=== PATIENT | male | born 1950 | race Caucasian/White ===

== ENCOUNTER → 2020-05-02 10:27 | Outpatient (BNVA) | payer OTHER, SELFPAY | PROVIDERS: Family Provider Family Medicine; Visit Provider Family Medicine | DX: Z20.828 Contact with and (suspected) exposure to other viral communicable diseases (principal) | CPT/HCPCS: 87635 ==

== ENCOUNTER 2020-08-02 07:54 | Outpatient (CLI) | payer OTHER, SELFPAY ==
--- NOTE | 2020-08-02 08:24 | FL_ITS ---
WS: [id number] Barium swallow and esophagram, upper GI series, 08/02/2020 Clinical Data: Z98.84 - Bariatric surgery status Comparison: None. Fluoroscopy time: 1.3 minutes. Findings: The patient swallowed the barium, and it flowed through the hypopharynx without hesitation. No strict ure, mass, polyp or erosion was seen. The barium passed into the esophagus and there was poor motility throughout. There was no erosion, po lyp, mass, stricture or esophagitis. However there was massive gastroesophageal reflux to the level o f the thoracic inlet when the patient was in the prone position. The barium passed into the fundus of the stomach which was well distended. The apparatus to narrow the stomach was at the level of the yehuda dy of the stomach. The distal stomach showed no polyp, mass, erosion or ulcer. The duodenal bulb fill ed normally and there was no ulceration. . The proximal small bowel is normal. FL/FL upper GI series 34214 Impression: 1. Poor esophageal motility with massive gastroesophageal reflux from the gastr oesophageal junction to the thoracic inlet. 2. A lap band did narrow the stomach at the level of the junction of the fundus and body. 3. No stomach masses, erosion, fistula or ulcer was seen. 4. Negative for duodenal ulcer.
== END 2020-08-02 07:55 | disposition home or self-care (01) ==
LOC: RADWPI 07:56
PROVIDERS: Family Provider Family Medicine; Visit Provider Surgery
DX: Z98.84 Bariatric surgery status (principal)
CPT/HCPCS: 74240

== ENCOUNTER → 2020-08-09 09:58 | Outpatient (BNVA) | payer OTHER, SELFPAY | PROVIDERS: Family Provider Family Medicine; Visit Provider Surgery | DX: Z01.812 Encounter for preprocedural laboratory examination (principal); Z20.822 Contact with and (suspected) exposure to COVID-19 | CPT/HCPCS: 87635 ==

== ENCOUNTER 2020-08-13 06:11 | Day surgery (SDC) | payer OTHER, SELFPAY ==
[2020-08-12 12:17] VITALS: BMI 50.5
[2020-08-13] VITALS (9 sets, daily range): BP systolic 119–193; BP diastolic 67–111; PULSE 41–48; RESP 16–20; TEMP 36.1–36.6; O2SAT 94–98
[2020-08-13] MEDS: sodium chloride 0.9% 1,000 ML 30 ML IV (06:34)
--- NOTE | 2020-08-13 07:21 | ANES.PREANE2 ---
Pre-Anesthetic Assessment Pre-Anesthetic Assessment: Height/Weight: Height 1.68 m Weight 141.974 kg Temp Pulse Resp BP Pulse Ox 97.8 F 46 L 18 193/88 98 08/13/20 06:46 08/13/20 06:46 08/13/20 06:46 08/13/20 06:46 08/13/20 06:46 Preop Diagnosis: Difficulty in swallowing Proposed Procedure: Operation Date: 08/13/20 08:00 Proposed Procedures p EGD [id number] r13.10 z46.51(Not Applicable) - Petey Chacon MD s Gastric Band Adjustment(Not Applicable) - Petey Chacon MD Was Beta Amy taken within 24 hours: N/A Was Clonidine taken within 24 hours: N/A Last intake: Intake Last Liquid Date 08/12/20 Last Liquid Time 22:00 Last Solid Date 08/12/20 Last Solid Time 21:00 Social: Social History: No alcohol and No tobacco Exam: Pre-Anes Outpt Exam: alert, oriented x 3, clear to auscultation bilaterally and regular rate & rhythm (4/6 Systolic Murmur ) Airway: Submandibular: Other Cervical ROM: Other MP: 4 Pulmonary: Pulmonary: PICKETT and Sleep apnea CV/HEM: CV/HEM: Arrythmia and HTN : : None reported Hepatic: Hepatic: None reported GI: GI: GERD Metabolic: Metabolic: Hyperlipidemia and Morbid obesity Musc/skel: Musc/skel: None reported Neuropsych: Neuropsych: None reported Anesthetic Plan: ASA status: 4 Anesthesia: MAC Meds/Allergies Current Medications: Current Medications Generic Name Dose Route Start Last Admin Trade Name Lobitoq PRN Reason Stop Dose Admin Sodium Chloride 1,000 mls @ 30 ml s/hr 08/13/20 06:30 08/13/20 06:34 Sodium Chloride 0.9% IV 08/14/20 06:29 30 mls/hr .Q24H SAM Administration PFSH Anesthesia PFSH: Family History Denies family history of Anesthesia complication Bleeding disorder Social History Smoking and tobacco status: former smoker Alcohol intake: never Data Anesthesia Cardiac Studies: No Data to Display
--- NOTE | 2020-08-13 08:15 | W.PM.OPSUD ---
Surgery/Procedure H&P Update DATE OF PROCEDURE: August 13, 2020 DATE H&P PERFORMED: 08/07/20 H&P UPDATE INFORMATION: I have reviewed H&P completed within last 30 days, I have examined patient prior to procedure and No changes to prior documentation (Patient In agreement to have pulled the fluid out) PREOP DIAGNOSIS: Difficulty in swallowing PRIMARY INDICATION FOR PROCEDURE: THE SAME PLANNED PROCEDURE: Operation Date: 08/13/20 08:00 Proposed Procedures p EGD [id number] r13.10 z46.51(Not Applicable) - Petey Chacon MD s Gastric Band Adjustment(Not Applicable) - Petey Chacon MD
[2020-08-13] MEDS: lidocaine 2% INJ 20 mL INJECTION (08:55)
--- NOTE | 2020-08-13 09:25 | P.OP_ITS ---
Operative Report Date of procedure: August 13, 2020 Pre-op Diagnosis: Difficulty in swallowing Post-op diagnosis: same Post-op Findings: Gastritis GE polyp Procedure Done: Adjustment of gastric band Diagnostic EGD with biopsy Specimens removed/disposition: 6-1/2 mL from the port GE junction polyp cold snare biopsy CLOtest from the antrum using cold biopsy forceps Surgeon: Petey Chacon Harvest Manager: instructional technology coach Shilpi counter intelligence technician Yeny Christine circulating nurse Anesthesia: MAC Estimated blood loss (mL): 0 Brief History: Patient does have related issues with gastric band in the form of repeated nausea and vomiting. Full H&P and informed consent per chart. Procedure: Patient was identified in holding area, was taken to the operating room and was placed in supine position Time-out was done verifying the patient's name and the procedure, All were in agreement After prep and drape of the upper abdomen under sterile technique,Lidocaine 2 percent was injected at the site followed by Alvarado needle insertion and about 6.5 ml of fluid were aspirated and nothing more was left behind. 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 The GE junction was appreciated at 47 cm and the band was located at 55 cm from the incisors.Was no evidence of band erosion yet there was an indentation of the band with some discoloration of the gastric mucosa but no ischemia.Food bezoar was appreciated at the proximal gastric pouch and a polyp was seen at the gastroesophageal junction with cold snare biopsy was obt ained.Otherwise examination was done all the way to the second part of the duodenum and showed normal findings. Prepyloric gastritis was appreciated and a cold biopsy was obtained for H. pylori testing from the Antrum. Scope was then retrieved after gas deflation Patient tolerated the procedure well And was taken to the recovery area in stable condition I was present for the whole entire procedure
--- NOTE | 2020-08-13 14:56 | ANE.PACU2 ---
Inpatient post-anesthesia follow up: Airway intact: Yes Vital signs: Temperature 97.0 F Pulse Rate 46 Respiratory Rate 16 Blood Pressure 156/81 Pulse Oximetry 96 Oxygen Delivery Me thod Room Air Oxygen Flow Rate 6 Fraction of Inspir ed Oxygen Hydration adequate: Yes Nausea and vomiting: No Pain level: 3 Mental status: Baseline
[2020-08-14 06:17] LABS: H. Pylori / CLO Test Negative
== END 2020-08-13 10:15 | disposition home or self-care (01) ==
PROVIDERS: Visit Provider Surgery
PROC: 0DJ08ZZ Inspection of Upper Intestinal Tract, Via Natural or Artificial Opening Endoscopic (ICD-10-PCS; CPT 43235; principal; 2020-08-13 08:00)
PROC: (CPT 43999; 2020-08-13 08:00)
DX: K29.70 Gastritis, unspecified, without bleeding (principal); Z46.51 Encounter for fitting and adjustment of gastric lap band; G47.30 Sleep apnea, unspecified; I10 Essential (primary) hypertension; K21.9 Gastro-esophageal reflux disease without esophagitis; E78.5 Hyperlipidemia, unspecified; E66.01 Morbid (severe) obesity due to excess calories; Z68.43 Body mass index [BMI] 50.0-59.9, adult; Z87.891 Personal history of nicotine dependence
CPT/HCPCS: 43999; 43239; 87077; 88305; J2704; J7030

== ENCOUNTER 2020-09-23 14:46 | Outpatient (CLI) | payer OTHER, SELFPAY ==
--- NOTE | 2020-09-23 15:00 | USCV_ITS ---
Severiano Jensen Age: 70 Gender: M : 1950 Exam Date: 09/23/2020 15:24 Ordering Phys: Monica Mcnulty MD ([email or web address]) Technologist: Dora Joe Exam Location: [facility] – [place] Indication: RCEA Risk Factors: Unknown Previous Vascular Surgery: RCEA Right Brachial BP: / Left Brachial BP: / Right Left Velocity (cm/s) Spectral Plaque Velocity (cm/s) Spectral Plaque Syst/Diast Broadening Syst/Diast Broadening 93.20/ 25.00 Prox CCA 111.70/ 29.10 83.60/ 23.10 Mid CCA 104.10/ 27.50 62.50/ 16.30 Distal CCA 91.80 / 26.00 74.80/ 20.30 Prox ICA 117.80/ 21.40 Hetro 87.30/ 24.90 Mid ICA 115.70/ 31.20 166.30/35.50 Distal ICA 106.50/ 33.60 42.30 ECA 163.70 1.99 ICA/CCA 1.13 Antegrade Vertebral Antegrade 112.3/ 31.30 cm/s 50.90/ 19.70 cm/s 0 Tri Subclavian Tri 193.3 183.3 0 0 FINDINGS Mild to moderate heterogeneous plaques bilaterally at the bifurcations Normal thickening in the common carotid arteries bilaterally. Antegrade flow in the vertebral arteries bilaterally. CONCLUSIONS Mild to moderate heterogeneous plaques bilaterally at the bifurcations and internal carotid arteries with Doppler features suggestive of less than 50% stenosis. Intimal thickening in the common carotid arteries bilaterally Compared to the study from 07/28/2018, there may not be a significant change Dr Monica Mcnulty MD [facility] (Electronically Signed) Final Date: 24 September 2020 20:03 S
== END 2020-09-23 14:47 | disposition home or self-care (01) ==
PROVIDERS: PCP Family Medicine; Visit Provider Internal Medicine Cardiovascular Disease
DX: I65.23 Occlusion and stenosis of bilateral carotid arteries (principal)
CPT/HCPCS: 93880

== ENCOUNTER → 2020-12-04 10:18 | Outpatient (BNVA) | payer OTHER, SELFPAY | PROVIDERS: PCP Family Medicine; Referring Provider Internal Medicine Cardiovascular Disease; Visit Provider Internal Medicine Cardiovascular Disease | DX: Z01.818 Encounter for other preprocedural examination; Z20.822 Contact with and (suspected) exposure to COVID-19; I48.19 Other persistent atrial fibrillation; I65.22 Occlusion and stenosis of left carotid artery; R53.1 Weakness; Z79.01 Long term (current) use of anticoagulants; R00.1 Bradycardia, unspecified | CPT/HCPCS: 80053; 85025; 85610; 86850; 86900; 87635 ==

== ENCOUNTER → 2020-12-05 14:43 | Outpatient (BNVA) | payer OTHER, SELFPAY | PROVIDERS: PCP Family Medicine; Referring Provider Internal Medicine Cardiovascular Disease; Visit Provider Internal Medicine Cardiovascular Disease | DX: Z01.812 Encounter for preprocedural laboratory examination (principal) | CPT/HCPCS: 85025; 85610 ==

== ENCOUNTER 2020-12-10 07:36 | Outpatient (CLI) | payer OTHER, SELFPAY ==
[2020-12-10] VITALS (13 sets, daily range): BP systolic 118–169; BP diastolic 62–79; PULSE 45–74; RESP 16–18; TEMP 36.4–36.7; O2SAT 92–98; BMI 50.0
--- NOTE | 2020-12-10 08:03 | W.PM.OPSUD ---
Surgery/Procedure H&P Update DATE OF PROCEDURE: December 10, 2020 DATE H&P PERFORMED: 12/10/20 H&P UPDATE INFORMATION: I have reviewed H&P completed within last 30 days, I have examined patient prior to procedure and No changes to prior documentation PREOP DIAGNOSIS: Symptomatic bradycardia/atrial fibrillation PRIMARY INDICATION FOR PROCEDURE: Same as above PLANNED PROCEDURE: Operation Date: 12/10/20 08:30 Proposed Procedures p Pacemaker Insertion(Left) - Monica Mcnulty MD PATIENT REASSESSED PRIOR TO SEDATION, WITH NO CHANGE NOTED: Yes PHYSICAL EXAM: alert, clear to auscultation bilaterally, regular rate & rhythm and operative site marked AIRWAY EVAL/ANESTHESIA PLAN: normal airway, ASA II, Monitored Anesthesia, Local Anesthesia, Risks, benefits & alternatives of sedation and/or procedure discussed and Patient agrees to continue as planned
--- NOTE | 2020-12-10 08:07 | XR_ITS ---
WS: [id number] PORTABLE CHEST HISTORY: pre op clearance COMPARISON: 10/09/2015 LEFT lower lobe not well visualized due to the enlarged heart and lordotic positioning. Otherwise anthony gs are clear. Normal vasculature. No pleural effusion or pneumothorax. Cardiac size: Mildly enlarged cardiac silhouette. Mediastinum/Aorta: Normal mediastinum. No osseous abnormality seen. XR/XR chest 1V portable [id number] IMPRESSION: Mild cardiomegaly. No pneumonia.
--- NOTE | 2020-12-10 08:08 | PM.OPSURHP ---
Providers/Chief Complaint Admitting Physician: JOÃO Mcnulty Primary Care Provider: Phill Mora MD Chief Complaint: 51833 r00.1 History of Present Illness Severiano Jensen is a 70 year old male with a history of hypertension, obstructive sleep apnea, carotid artery stenosis, heart block and atrial fibrillation, presented with complaints of dizziness/near syncopal episodes. He was found to have symptomatic bradycardia. For further management of his condition, a permanent pacemaker mentation was recommended. Patient denies any chest pain. No fever or chills. No cough. No abdominal pain or dysuria. He is overall functional status has been gradually declining over the last several months. No other specific complaints Review of Systems Narrative: CONSTITUTIONAL: No fever or chills. Feeling of generalized weakness as mentioned above EYES: No blurring of vision or other visual disturbances lately. ENT: No hoarseness of voice, auditory disturbances or sore throat. CARDIOVASCULAR: As mentioned above. RESPIRATORY: No significant cough. GASTROINTESTINAL: No hematemesis or melena. GENITOURINARY: No dysuria or hematuria. INTEGUMENTARY: No skin rashes or history of skin cancer. NEURO: No transient ischemic attacks or amaurosis. PSYCHIATRIC: No history of psychosis or major depression. HEMATOLOGIC: No bleeding disorders or significant anemia. ENDOCRINE: No history of polyuria or polydipsia. MUSCULOSKELETAL: No recent joint pain or swelling. ALLERGY/IMMUNOLOGY: As mentioned above. Medications/Allergies Home Medications Medication Instructions Recorded Confirmed Last Taken Type loratadine 10 mg tablet 10 mg PO DAILY 11/22/19 12/10/20 12/09/20 22:00 History multivitamin 1 tab PO DAILY 11/22/19 12/09/20 08/12/20 History sildenafil 50 mg tablet 50 mg PO DAILY PRN 11/22/19 12/09/20 08/12/20 History simvastatin 20 mg tablet 20 mg PO DAILY 11/22/19 12/10/20 12/09/20 22:00 History albuterol sulfate 90 mcg/actuation 2 puff INHALATION QID PRN g 08/14/20 12/09/20 Unknown History aerosol inhaler lisinopril 40 mg tablet 40 mg PO DAILY #90 tab 08/23/20 12/10/20 12/10/20 06:30 Rx apixaban 5 mg tablet See Rx Instructions .ROUTE 09/12/20 12/09/20 11/30/20 22:00 Rx .COMPLEX #180 tab potassium chloride 10 mEq 10 meq PO DAILY tab 10/16/20 12/10/20 12/09/20 06:00 History tablet,extended release pantoprazole 40 mg tablet,delayed 40 mg PO DAILY #90 tab 10/17/20 12/10/20 12/09/20 22:00 Rx release Chewable Calcium 1 tab PO DAILY 12/09/20 12/10/20 12/09/20 06:00 History Allergies Allergy/AdvReac Type Severity Reaction Status Date / Time No Known Allergies Allergy Verified 12/09/20 13:04 PFSH PFSH: Medical History Daytime somnolence History of atrial fibrillation History of hypertension History of second degree heart block Hx of carotid artery stenosis Hx of hyperlipidemia Obstructive sleep apnea Surgical History History of carotid endarterectomy Personal history of gastric banding Family History Father Hypertension CAD (coronary artery disease) Diabetes Mother Hypertension Cancer Dementia Stroke Denies family history of Clotting disorder Chronic kidney disease (CKD) Suicide Anesthesia complication Bleeding disorder Lung disease Social History Smoking and tobacco status: never smoked Alcohol intake: never Dietary Habits: Caffeine: No Physical Exam Narrative: EXAM NARRATIVE: GENERAL: The patient is alert and oriented times three. Not in any acute distress. HEENT: No significant pallor, icterus or lymphadenopathy.Oral cavity: There are no mucous membrane lesions. NECK: Trachea appears to be central. No masses noted. No JVD or thyromegaly appreciated. RESPIRATORY: Chest is symmetrical. No intercostals muscle retraction or any accessory muscle activation. There is no chest wall tenderness. Breath sounds are heard bilaterally. No rales or rhonchi heard. No evidence of any consolidation. BREASTS: Deferred. HEART: The heart sounds are normal. No S3 or S4. Short systolic murmur in the left sternal border. No diastolic murmurs. No pericardial rub ABDOMEN: No vessel pulsations or distention. No tenderness. No organomegaly appreciated. Bowel sounds are normally heard. : Deferred. RECTAL: Deferred. LYMPHATIC: No lymphadenopathy noted in the neck or groin. EXTREMITIES: No edema or cyanosis. No clubbing. Peripheral pulses are palpated in fairly good volume and amplitude MUSCULOSKELETAL: No acute joint deformities or swelling SKIN: There are no significant rashes or ecchymosis NEUROPSYCHIATRIC: The patient is alert and oriented x3. Appears to be in a good mood. No tremors or rigidity noted. A&P Assessment and plan (1) History of atrial fibrillation: Patient has been on Eliquis which is for the last 3 days. Status: Acute (2) Symptomatic bradycardia: For further management of his condition, patient requires a permanent pacemaker evaluation. The risk of bleeding, hematoma, vascular injury, pneumothorax, infection, renal failure and other concomitant complications were explained in detail. The patient understood this well and consented to proceed. He is scheduled for the pacemaker insertion today. Status: Resolved (3) Carotid stenosis: Continue on the current management plan Status: Acute Qualifiers: Laterality: left Qualified Code(s): I65.22 - Occlusion and stenosis of left carotid artery (4) Hx of hyperlipidemia: May continue on the current medications Status: Acute (5) History of second degree heart block: Status: Acute (6) History of hypertension: Currently the blood pressure is a stage II. We will try to optimize antihypertensive medications. Status: Acute Additional A&P Information Based on the patient's clinical progress, further management decisions will be made. 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
--- NOTE | 2020-12-10 08:19 | ECG_ITS ---
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 Measurements Intervals [place] Rate: 42 P: PA: QRS: 63 QRSD: 98 T: 49 QT: 442 QTc: 371 Interpretive Statements Atrial fibrillation with a possible junctional escape rhythm Poor R wave progression LOW QRS VOLTAGE IN EXTREMITY LEADS [QRS DEFLECTION < 0.5 mV IN LIMB LEADS] ABNORMAL RHYTHM ECG Compared to ECG 10/09/2015 14:41:47 Low QRS voltage now present Atrial fibrillation no longer present Electronically Signed On 12-10-2020 23:49:15 CDT by Monica Mcnulty M.D. [id number]
--- NOTE | 2020-12-10 11:27 | PC.CHAP ---
Pastoral Care Encounter/Spiritual Assessment Type of Contact [] Declined grooving lathe tender visit [] Patient/Family/Request visit [] Outpatient visit [] Follow-up visit [] Physician referral [] Code/Alert [x] Routine visit [] Staff referral [] Actively dying [] Patient sleeping [] Family support [] [] Out of room [] Palliative care [] [x] Receiving care in room [] Pre-surgical visit [] Trauma [] Long length of stay [] ICU visit [] Other: Relational/Emotional Strength [] Patient feels connected with others/family/visitors/staff [] Distress [] Loneliness/isolation [] Abandonment Spirituality of Patient [] Person of Alissa [] Attends Jewish of their Alissa [] Believes in Prayer [] Reads Bible or Congregation materials [] There are Spiritual issues to be addressed Drum Filler Interventions [] Prayer [] Active listening [] Non-anxious presence [] Spiritual/emotional support [] Crisis/trauma care [] Spiritual counseling [] Bereavement support [] Provided bereavement packet [] Provided Bible/devotional materials [] Provided toy/stuffed animal, coloring book to patient or family member [] Provided Communion [] Anointing/[place]elow [] Salvation [] Completed spiritual assessment [] Other: Impact on Illness or Injury [] Angry [] Fearful [] Anxious [] Often cries [] Exhaustion [] Unable to work [] Unable to attend confucianist [] Unable to walk/stand [] Unable to read [] Unable to drive [] Unable to eat/drink [] Unable to sleep [] Unable to be with family [] Patient intubated [] Other: Summary Time spent with patient
[2020-12-10] MEDS: dextrose 5%-sod chloride 0.45% 1,000 ML 75 ML IV ×2 (11:57→23:10)
--- NOTE | 2020-12-10 14:28 | XR_ITS ---
WS: [id number] XR chest 1V portable [id number] REASON FOR EXAM: new pacemaker FINDINGS: Battery pack overlying the lateral left upper chest. Transvenous left subclavian vein leads terminati ng in the right ventricular apex region. The heart is mildly enlarged. No active pulmonary parenchymal or pleural disease. No pneumothorax. XR/XR chest 1V portable [id number] IMPRESSION: Post pacemaker placement as above.
[2020-12-10] MEDS: atorvastatin 40 mg Tablet 20 MG PO (20:22)
--- NOTE | 2020-12-10 20:41 | P.OP_ITS ---
Operative Report Date of procedure: December 10, 2020 Pre-op Diagnosis: Symptomatic bradycardia/atrial fibrillation Procedure: LOCATION: Outpatient PREOPERATIVE DIAGNOSES: Atrial fibrillation/symptomatic bradycardia. POSTOPERATIVE DIAGNOSES: Same. COMPLICATIONS: None. ESTIMATED BLOOD LOSS: Around 5 milliliters. BRIEF HISTORY: This is a 70-year-old white male with history of atrial fibrillation bradycardia and heart block, presented with complaints of dizziness/near syncope /fatigue. His heart rate was going down to the 30s and 40s. In view of the patient's symptomatic bradycardia arrhythmia, for further management of his condition, a permanent pacemaker implantation was recommended. A single-chamber permanent pacemaker implantation was recommended for further management of her condition. The procedure was explained to the patient in detail with the risks and benefits. The risks of bleeding, hematoma, vascular injury, infection, pneumothorax, myocardial perforation and other concomitant complications were explained in detail, which the patient understood well and consented to proceed. PROCEDURE DESCRIPTION: The patient was brought to the Cardiac Catheterization Lab. The left and the right side of the neck and the subclavian area were cleaned and draped in a sterile fashion. 1% Xylocaine was used as the local anesthetic agent. A left subclavian venous access was obtained using a micropuncture needle system. Under venographic guidance, the patient was injected with 20 milliliters of Omnipaque through the left antecubital vein. A two-inch long incision was made 2.0 centimeters below the midclavicular region. By sharp and blunt dissection, a pacemaker pocket was made. Over the guidewire, a 7-English venous sheath with dilator was advanced. The venous dilator and the guidewire were taken out. A screw-in ventricular lead was advanced through the venous sheath and was positioned towards the right ventricle. Under fluoroscopy guidance, the ventricular lead was positioned toward the right ventricular apex. Good pacing and sensing thresholds were obtained. The lead was secured to the endocardium by advancing the helix. The stability of the lead was tested by gentle twisting movements and also by asking the patient to take some deep breaths and cough. The venous sheath was peeled off, at this time. The lead was secured to the pectoralis fascia, by suturing with 1-0 Surgilon. . The lead was secured to the pectoralis fascia by suturing with 0-Surgilon. The pacemaker pocket was copiously irrigated with vancomycin solution. Complete hemostasis was achieved. Sponge counts were confirmed. The leads were attached to a Medtronic generator. The leads were positioned behind the generator and the generator was attached to the pectoralis fascia by suturing with 0-Surgilon. The pocket was closed in layers. Skin was approximated using 4-0 Vicryl. IMPLANTED DEVICES: VENTRICULAR LEAD: Model number: 5076/58 Serial number: [id number] Make: [employer] GENERATOR Brand: [place] XT SR MRI SureScan Model number: [id number] Serial number: [id number] Make: Medtronic IMPLANTATION DATA: With the pacing system analyzer, the R wave sensing was 6.2 millivolts with a lead impedance of 760 and a pacing threshold was 0.625 volts at 0.4 milliseconds. Through the device, the R-wave sensing was 6.4 millivolts with a lead impedance of 722 and a pacing threshold was 0.5 volts at 0.4 milliseconds. The pacemaker was set for VVIR mode with upper rate of 130 and a lower rate of 60. A pressure dressing was applied over the pacemaker site. The patient was transferred to the Medical Floor in stable condition. A chest x-ray was ordered to confirm the lead position and also to rule out any pneumothorax.
[2020-12-11] VITALS (7 sets, daily range): BP systolic 106–158; BP diastolic 59–80; PULSE 58–62; RESP 16–18; TEMP 36.5–36.7; O2SAT 92–96
--- NOTE | 2020-12-11 04:06 | PC.NURSE ---
i reported low pulse 58 to nurse
--- NOTE | 2020-12-11 05:54 | PC.NURSE ---
Pt pacemaker was interogated by nurse. Pressure dressing removed
--- NOTE | 2020-12-11 06:00 | ECG_ITS ---
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
[2020-12-11] MEDS: loratadine 10 mg Tablet PO (08:09)
[2020-12-11] MEDS: lisinopril 20 mg Tablet 40 MG PO (08:10)
[2020-12-11] MEDS: potassium chloride ER 10 mEq Tablet PO (08:10)
[2020-12-11] MEDS: multivitamin therapeutic Tablet 1 TAB PO (08:10)
[2020-12-11] MEDS: pantoprazole DR 40 mg Tablet PO (08:10)
--- NOTE | 2020-12-11 10:06 | PC.CHAP ---
Pastoral Care Encounter/Spiritual Assessment Type of Contact [] Declined guard chief visit [] Patient/Family/Request visit [] Outpatient visit [] Follow-up visit [] Physician referral [] Code/Alert [x] Routine visit [] Staff referral [] Actively dying [x] Patient sleeping [] Family support [] [] Out of room [] Palliative care [] [] Receiving care in room [] Pre-surgical visit [] Trauma [] Long length of stay [] ICU visit [] Other: Relational/Emotional Strength [] Patient feels connected with others/family/visitors/staff [] Distress [] Loneliness/isolation [] Abandonment Spirituality of Patient [] Person of Alissa [] Attends Shinto of their Alissa [] Believes in Prayer [] Reads Bible or Yarsani materials [] There are Spiritual issues to be addressed Radiology Specialist Interventions [] Prayer [] Active listening [] Non-anxious presence [] Spiritual/emotional support [] Crisis/trauma care [] Spiritual counseling [] Bereavement support [] Provided bereavement packet [] Provided Bible/devotional materials [] Provided toy/stuffed animal, coloring book to patient or family member [] Provided Communion [] Anointing/Merom [] Salvation [] Completed spiritual assessment [] Other: Impact on Illness or Injury [] Angry [] Fearful [] Anxious [] Often cries [] Exhaustion [] Unable to work [] Unable to attend taoist [] Unable to walk/stand [] Unable to read [] Unable to drive [] Unable to eat/drink [] Unable to sleep [] Unable to be with family [] Patient intubated [] Other: Summary Time spent with patient
== END 2020-12-11 16:00 | disposition home or self-care (01) ==
LOC: CCL 07:43 → MEDSURG 14:06
PROVIDERS: PCP Family Medicine; Visit Provider Internal Medicine Cardiovascular Disease
DX: R00.1 Bradycardia, unspecified (principal); I48.91 Unspecified atrial fibrillation; I10 Essential (primary) hypertension; G47.33 Obstructive sleep apnea (adult) (pediatric); I25.10 Atherosclerotic heart disease of native coronary artery without angina pectoris; E78.5 Hyperlipidemia, unspecified; I65.22 Occlusion and stenosis of left carotid artery; Z86.39 Personal history of other endocrine, nutritional and metabolic disease
CPT/HCPCS: 33207; 36415; 71045; 93005; C1769; C1786; C1894; C1898; J0360; J0690; J2250; J3010; J7030; J7050; J7799; Q9967

== ENCOUNTER → 2021-12-23 15:02 | Outpatient (BNVA) | payer MEDICARE, SELFPAY | PROVIDERS: PCP Family Medicine; Visit Provider Internal Medicine Cardiovascular Disease | DX: I48.19 Other persistent atrial fibrillation (principal); I83.893 Varicose veins of bilateral lower extremities with other complications; I10 Essential (primary) hypertension; E78.5 Hyperlipidemia, unspecified; Z79.01 Long term (current) use of anticoagulants; Z95.0 Presence of cardiac pacemaker; G47.33 Obstructive sleep apnea (adult) (pediatric); Z87.891 Personal history of nicotine dependence | CPT/HCPCS: 99214 ==

== ENCOUNTER → 2022-02-13 08:14 | Outpatient (BNVA) | payer MEDICARE, SELFPAY | PROVIDERS: PCP Family Medicine; Visit Provider Internal Medicine Cardiovascular Disease | DX: Z45.010 Encounter for checking and testing of cardiac pacemaker pulse generator [battery] (principal) | CPT/HCPCS: 93279 ==

== ENCOUNTER 2022-02-17 06:45 | Outpatient (CLI) | payer MEDICARE, SELFPAY ==
--- NOTE | 2022-02-17 07:15 | USCV_ITS ---
JennySeveriano walker Age: 71 Gender: M : 1950 Exam Date: 02/17/2022 07:16 Ordering Phys: Monica Mcnulty MD ([email or web address]) Technologist: CT Exam Location: [facility] [place] Indication: swelling PROCEDURES: The venous duplex Doppler examination of both lower extremities was performed in the standard fashion. Bilaterally, the common femoral, superficial femoral, profunda femoral, popliteal, posterior tibial, greater saphenous veins, and the peroneal trunk were identified and interrogated in the standard fashion. These veins were found to be easily compressible with spontaneous blood flow. Bilaterally, the common femoral, superficial femoral, profunda femoral, popliteal, posterior tibial, greater saphenous veins, and the peroneal trunk were identified and interrogated in the standard fashion. These veins were found to be easily compressible with spontaneous blood flow. Varicosities are noted bilaterally below the knee FINDINGS: No dvt, varicosities noted below the knee bilaterally absent of thrombus The veins were found to be easily compressible with spontaneous blood flow. Non pulsatile flow pattern. Echo-free spaces are noted bilaterally in the subcutaneous tissue CONCLUSIONS No evidence of DVT in the above-mentioned identifiable veins. Features of fluid retention/edema bilaterally in the below-knee area. Varicose veins also noted bilaterally in the below-knee areas Dr Monica Mcnulty MD [facility] (Electronically Signed) Final Date: 17 February 2022 09:06 S
== END 2022-02-17 06:46 | disposition home or self-care (01) ==
LOC: RAD 06:46
PROVIDERS: PCP Family Medicine; Visit Provider Internal Medicine Cardiovascular Disease
DX: M79.89 Other specified soft tissue disorders (principal)
CPT/HCPCS: 93970

== ENCOUNTER → 2022-05-19 15:51 | Outpatient (BNVA) | payer MEDICARE, SELFPAY | PROVIDERS: PCP Family Medicine; Visit Provider Internal Medicine Cardiovascular Disease | DX: Z45.010 Encounter for checking and testing of cardiac pacemaker pulse generator [battery] (principal) | CPT/HCPCS: 93296 ==

== ENCOUNTER → 2022-06-30 15:27 | Outpatient (BNVA) | payer MEDICARE, SELFPAY | PROVIDERS: PCP Family Medicine; Visit Provider Internal Medicine Cardiovascular Disease | DX: I65.22 Occlusion and stenosis of left carotid artery (principal); I48.20 Chronic atrial fibrillation, unspecified; I10 Essential (primary) hypertension; Z86.39 Personal history of other endocrine, nutritional and metabolic disease; G47.33 Obstructive sleep apnea (adult) (pediatric); I07.1 Rheumatic tricuspid insufficiency; R60.9 Edema, unspecified; Z87.891 Personal history of nicotine dependence | CPT/HCPCS: 99214 ==

== ENCOUNTER 2022-07-23 13:54 | Outpatient (CLI) | payer MEDICARE, SELFPAY ==
[2022-07-23 15:02] LABS: Anion Gap 13.8 (5-19); Blood Urea Nitrogen 23 mg/dL (8-23); Calcium 9.7 mg/dL (8.5-10.5); Carbon Dioxide 28 mmol/L (22-29); Chloride 102 mmol/L (98-107); Glucose 112 mg/dL (65-115); NT Pro B Type Natriuretic Pept 545 pg/mL (0-125); Osmolality Calculated 292 mOsm/kg (285-295); Potassium 4.8 mmol/L (3.5-5.1); Sodium 139 mmol/L (136-145)
== END 2022-07-23 13:55 | disposition home or self-care (01) ==
PROVIDERS: PCP Family Medicine; Visit Provider Internal Medicine Cardiovascular Disease
DX: R06.09 Other forms of dyspnea (principal); I10 Essential (primary) hypertension; R60.9 Edema, unspecified
CPT/HCPCS: 36415; 80048; 83880

== ENCOUNTER 2022-07-23 14:29 | Outpatient (CLI) | payer MEDICARE, SELFPAY ==
--- NOTE | 2022-07-23 14:00 | USCV_ITS ---
Severiano Jensen Age: 71 Gender: M : 1950 Exam Date: 07/23/2022 15:22 Ordering Phys: Monica Mcnulty MD ([email or web address]) Technologist: JOANNA [place] [facility] [place]: Stenosis Risk Factors: Previous Vascular Surgery: Right Brachial BP: / Left Brachial BP: / Right Left Velocity (cm/s) Spectral Plaque Velocity (cm/s) Spectral Plaque Syst/Diast Broadening Syst/Diast Broadening 53.90/ 15.80 Prox CCA 94.80 / 28.00 57.80/ 22.30 Mid CCA 88.90 / 22.20 61.80/ 20.40 Distal CCA 89.70 / 24.80 83.90/ 21.00 Prox ICA 94.80 / 29.80 99.10/ 35.00 Mid ICA 98.60 / 25.10 148.80/50.70 Distal ICA 112.00/ 29.50 25.00 ECA 115.80 2.41 ICA/CCA 1.18 Antegrade Vertebral Antegrade 83.30/ 29.50 cm/s 66.20/ 12.80 cm/s Tri Subclavian Tri 91.30 188.0 0 CONCLUSIONS Right ICA stenosis <50%. Mild atheromatous plaque right carotid bulb/ICA. Left ICA stenosis <50%. Mild atheromatous plaque left carotid bulb/ICA. Normal antegrade Doppler flow noted in the right vertebral artery. Normal antegrade Doppler flow noted in the left vertebral artery. Jose Carlos Kyle MD (Electronically Signed) Final Date: 23 July 2022 17:27 S
--- NOTE | 2022-07-23 14:45 | USCV_ITS ---
Severiano Jensen Age: 71 Gender: M : 1950 Exam Date: 07/23/2022 14:45 Ordering Phys: Monica Mcnulty MD ([email or web address]) Technologist: Partha Mcmahan Exam Location: [facility] – [place] Indication: Aortic stenosis BP: 121 / 66 HR: 64 Rhythm: Sinus Technical Quality: Adequate MEASUREMENTS (Male / Female) Normal Values 2D ECHO LVOT Diameter 2.1 cm LV Ejection Fraction MOD 2C 67.8 % LV Ejection Fraction 2C AL 67.6 % LA Diameter 4.7 cm LA Width 3.8 cm LA Height 6.6 cm RA Width 4.6 cm RA Height 7.4 cm Aorta at Sinotubular Diameter 2.0 cm IVC Diameter 2.0 cm M-MODE Aortic Annulus Diameter 2.1 cm LA Ao Ratio MM 2.4 MV E Point Septal Separation 0.3 cm DOPPLER AV Peak Velocity 257.3 cm/s LVOT Peak Velocity 110.0 cm/s AV Area Cont Eq vti 1.6 cm squared AV Area Cont Eq pk 1.4 cm squared MV Peak Velocity 135.0 cm/s MV Area PHT 4.9 cm squared Mitral E to A Ratio 3.2 MV E' Velocity 49.5 cm/s Mitral E to MV E' Ratio 8.6 Mitral E to LV E' Lateral Ratio 6.7 Mitral E to LV E' Septal Ratio 12.1 TR Peak Velocity 334.4 cm/s TR Peak Gradient 44.7 mmHg TR Mean Velocity 236.3 cm/s TR Mean Gradient 24.8 mmHg TR Velocity Time Integral 82.8 cm Right Atrial Pressure 3.0 mmHg Pulmonary Artery Systolic Pressu 47.7 mmHg PV Peak Velocity 150.3 cm/s RV Acceleration Time 0.1 s RV Ejection Time 0.2 s RV AcT/ET 0.3 FINDINGS Left Ventricle Normal left ventricular size and systolic function, EF 68 %. Mild hypokinesia of the apical septum. Right Ventricle Catheter/pacemaker wire in the right ventricular cavity. Mildly increased right ventricular size. Normal right ventricular systolic function. Right Atrium Moderately increased right atrial size. Catheter/pacemaker wire in the right atrial appendage. Left Atrium Mildly increased left atrial size. Mitral Valve Trace to mild mitral valve regurgitation. Aortic Valve Mild aortic valve stenosis, mean gradient 14.2 mmHg, RICK 1.6 cm squared. Peak velocity of 2.59 m/s with a peak gradient of 27 mmHg Tricuspid Valve Mild tricuspid valve regurgitation. Estimated pulmonary artery peak systolic pressure 48 mmHg Pulmonic Valve Trace pulmonary valve regurgitation. Pericardium Normal pericardium without effusion. Aorta Normal ascending aorta dimension. IVC The inferior vena cava appears normal. CONCLUSIONS Normal left ventricular size and systolic function, EF 68 %. Mild hypokinesia of the apical septum. Moderately increased right atrial size. Catheter/pacemaker wire in the right atrial appendage. Mildly increased right ventricular size. Normal right ventricular systolic function. Catheter/pacemaker wire in the right ventricular cavity. Mildly increased left atrial size. Trace to mild mitral valve regurgitation. Mild aortic valve stenosis, mean gradient 14.2 mmHg, RICK 1.6 cm squared. Peak velocity of 2.59 m/s with a peak gradient of 27 mmHg. Mild tricuspid valve regurgitation. Estimated pulmonary artery peak systolic pressure 48 mmHg Trace pulmonary valve regurgitation. There is no pericardial effusion. Compared to the study from 12/10/2017, there is development of mild aortic valve stenosis. Otherwise no significant change Dr Monica Mcnulty MD [facility] (Electronically Signed) Final Date: 29 Jul 2022 09:52 S
== END 2022-07-23 14:30 | disposition home or self-care (01) ==
LOC: RAD 14:31
PROVIDERS: PCP Family Medicine; Visit Provider Internal Medicine Cardiovascular Disease
DX: I65.22 Occlusion and stenosis of left carotid artery (principal); I77.9 Disorder of arteries and arterioles, unspecified; Z95.0 Presence of cardiac pacemaker; I07.1 Rheumatic tricuspid insufficiency; R06.09 Other forms of dyspnea; I10 Essential (primary) hypertension; R60.9 Edema, unspecified
CPT/HCPCS: 36415; 80048; 83880; 84443; 85025; 93306; 93880

== ENCOUNTER → 2022-12-14 08:32 | Outpatient (BNVA) | payer MEDICARE, SELFPAY | PROVIDERS: PCP Family Medicine; Visit Provider Family Medicine | DX: Z00.00 Encounter for general adult medical examination without abnormal findings (principal); I65.22 Occlusion and stenosis of left carotid artery; I10 Essential (primary) hypertension; I48.20 Chronic atrial fibrillation, unspecified | CPT/HCPCS: 80053; 80061; 85025 ==

== ENCOUNTER → 2022-12-28 16:24 | Outpatient (BNVA) | payer MEDICARE, SELFPAY | PROVIDERS: PCP Family Medicine; Visit Provider Family Medicine | DX: L98.9 Disorder of the skin and subcutaneous tissue, unspecified (principal) | CPT/HCPCS: 88304 ==

== ENCOUNTER → 2023-01-14 08:21 | Outpatient (BNVA) | payer MEDICARE, SELFPAY | PROVIDERS: PCP Family Medicine; Visit Provider Family Medicine | DX: I10 Essential (primary) hypertension (principal); R79.89 Other specified abnormal findings of blood chemistry | CPT/HCPCS: 80048 ==

== ENCOUNTER → 2023-01-25 07:59 | Outpatient (BNVA) | payer MEDICARE, SELFPAY | PROVIDERS: PCP Family Medicine; Visit Provider Family Medicine | DX: R79.89 Other specified abnormal findings of blood chemistry (principal) | CPT/HCPCS: 80048 ==

== ENCOUNTER 2023-02-03 09:03 | Outpatient (CLI) | payer MEDICARE, SELFPAY ==
--- NOTE | 2023-02-03 09:30 | USCV_ITS ---
MikeySeveriano Age: 72 Gender: M : 1950 Exam Date: 02/03/2023 09:26 Ordering Phys: Melissa Mcgraw Technologist: JOANNA [place]am [place] [facility] [place]: HISTORY: PROCEDURES: FINDINGS: Multiple echolucent areas are noted in the subcutaneous tissue of the right leg. Significant venous reflux was noted at the distal and below-knee segments of the greater saphenous vein on the right side. These were 2.08 and 2.47 respectively. The venous segments were measuring 0.57 and 0.65 cm in diameter. These segments were at a depth of 0.32 and 0.47 cm. No reflexes were noted in the rest of the veins in the right side. On the left side, Significant reflux was noted at the distal greater saphenous vein segment measuring 3.19-second. The venous diameter was 0.35 cm at a depth of 1.72 cm from the surface. No evidence of DVT or deep vein reflexes. Multiple echo lucencies were noted in the subcutaneous tissue of the left leg CONCLUSIONS 1, Significant venous reflux of greater than 500 ms were noted at the distal and below-knee segments of the greater saphenous vein on the right side. But these segments were found to be very superficial, less than 1 cm from the surface. 2. On the left side, Significant venous reflux of more than 500 greater than 500 ms were noted at the distal greater saphenous vein segment. It was greater than 1 cm deep from the surface There venous diameter, reflux time and depth from the surface are all as mentioned above. No significant reflux or hrombosis in the deep veins. Features of fluid retention/edema of both lower extremities bilaterally Dr Monica Mcnulty MD [facility] (Electronically Signed) Final Date: 08 February 2023 19:53 S
== END 2023-02-03 09:04 | disposition home or self-care (01) ==
LOC: RAD 09:03
PROVIDERS: PCP Family Medicine; Visit Provider Nurse Practitioner Family
DX: N13.70 Vesicoureteral-reflux, unspecified (principal); I83.893 Varicose veins of bilateral lower extremities with other complications
CPT/HCPCS: 93970

== ENCOUNTER 2023-02-11 07:04 | Outpatient (CLI) | payer MEDICARE, SELFPAY ==
--- NOTE | 2023-02-11 07:45 | USCV_ITS ---
Severiano Jensen Age: 72 Gender: M : 1950 Exam Date: 02/11/2023 07:10 Ordering Phys: Phill Mora MD Technologist: Exam Location: [facility] [place] Indication: htn Aortic Velocity @ SMA (cm/s) 107 RIGHT KIDNEY LEFT KIDNEY Velocity (cm/s) Velocity (cm/s) Sys/Rosas Sys/Rosas Resistive Index Resistive Index 98.1 / 22.6 0.77 Proximal Renal Artery 154.1 / 28.1 0.82 85.2 / 20.5 0.76 Mid Renal Artery 134.4 / 22.9 0.81 84.1 / 25.9 0.69 Distal Renal Artery 111.5 / 23.1 0.79 103.5 / 31.3 0.70 Hilar 88.2 / 19.1 0.78 115.3 / 27.3 0.76 Upper Pole 90.8 / 20.1 0.78 100.4 / 24.8 0.75 Mid Pole 91.7 / 20.4 0.78 68.0 / 17.7 0.74 Lower Pole 86.7 / 20.6 0.76 0.90 Renal Aortic Ratio 1.23 Accleration Index (cm/sec2) 4509.0 Hilar 2703.0 0 0 2430.0 Upper Pole 2331.0 0 0 3321.0 Mid Pole 2174.0 0 0 1903.0 Lower Pole 2388.0 0 0 115.5 Kidney Length (mm) 120.8 FINDINGS renal cyst lt kidney CONCLUSIONS No sonographic evidence of hemodynamically significant renal artery stenosis bilaterally. No hydronephrosis Simple Left renal cyst measuring 4.0 x 3.6cm Jose Carlos Kyle MD (Electronically Signed) Final Date: 11 February 2023 13:53 S
== END 2023-02-11 07:05 | disposition home or self-care (01) ==
LOC: RAD 07:05
PROVIDERS: PCP Family Medicine; Visit Provider Family Medicine
DX: I10 Essential (primary) hypertension (principal); N28.1 Cyst of kidney, acquired
CPT/HCPCS: 93975; 99214

== ENCOUNTER → 2023-03-09 15:26 | Outpatient (BNVA) | payer MEDICARE, SELFPAY | PROVIDERS: PCP Family Medicine; Visit Provider Internal Medicine Cardiovascular Disease | DX: I48.91 Unspecified atrial fibrillation (principal); Z79.01 Long term (current) use of anticoagulants; Z95.0 Presence of cardiac pacemaker; I10 Essential (primary) hypertension; E78.5 Hyperlipidemia, unspecified; G47.33 Obstructive sleep apnea (adult) (pediatric); Z99.89 Dependence on other enabling machines and devices; I87.2 Venous insufficiency (chronic) (peripheral); I65.22 Occlusion and stenosis of left carotid artery; Z98.84 Bariatric surgery status; Z87.891 Personal history of nicotine dependence | CPT/HCPCS: 99214 ==

== ENCOUNTER → 2023-03-11 10:54 | Outpatient (BNVA) | payer MEDICARE, SELFPAY | PROVIDERS: PCP Family Medicine; Visit Provider Thoracic Surgery (Cardiothoracic Vascular Surgery) | DX: I83.893 Varicose veins of bilateral lower extremities with other complications (principal); Z87.891 Personal history of nicotine dependence; Z95.0 Presence of cardiac pacemaker; Z79.01 Long term (current) use of anticoagulants | CPT/HCPCS: 99202 ==

== ENCOUNTER 2023-04-28 21:52 | Emergency (ER) | payer MEDICARE, SELFPAY ==
--- NOTE | 2023-04-28 21:57 | XRR_ITS ---
PROCEDURE INFORMATION: Exam: XR Chest Exam date and time: 04/28/2023 10:13 PM Age: 72 years old Clinical indication: Shortness of breath; Additional info: SOB TECHNIQUE: Imaging protocol: Radiologic exam of the chest. Views: 1 view. COMPARISON: CR XR chest 1V portable [id number] 12/10/2020 2:40 PM FINDINGS: Lungs: No focal consolidation. Pleural spaces: No evidence of pneumothorax. No evidence of pleural effusion. Heart/Mediastinum: Cardiomediastinal silhouette is within normal limits. Left subclavian approach single lead pacemaker. Clip projects over the left upper quadrant. Bones/joints: No evidence of acute osseous abnormality. XR/XR chest 1V portable [id number] IMPRESSION: 1. No acute cardiopulmonary abnormality.
[2023-04-28 22:17] VITALS: BP 169/77; PULSE 86; RESP 18; TEMP 37.1; O2SAT 94
[2023-04-29 00:40] LABS: Influenza A by IFA positive (Negative); Influenza B by IFA negative (Negative)
--- NOTE | 2023-04-29 00:51 | ED_ITS ---
HPI - Chest Pain General: Chief Complaint: Chest Pain Stated Complaint: congestion Time Seen by Provider: 04/29/23 00:31 History of Present Illness: Patient reports to the ER with complaints of shortness of breath, nasal congestion and chest pressure. Patient has been exposed to influenza A. Patient also complains of bodyaches and chills. Review of Systems General: Reports: 10 or more systems reviewed and unremarkable except in HPI and below PFSH ED PFSH: Medical History History of cellulitis Pacemaker Daytime somnolence Hx of carotid artery stenosis History of atrial fibrillation History of hypertension Hx of hyperlipidemia History of second degree heart block Obstructive sleep apnea Surgical History Hx of tonsillectomy Personal history of gastric banding History of carotid endarterectomy Family History Father Hypertension CAD (coronary artery disease) Diabetes Mother Hypertension Cancer Dementia Stroke Denies family history of Clotting disorder Chronic kidney disease (CKD) Suicide Anesthesia complication Bleeding disorder Lung disease Social History Smoking and tobacco/nicotine status: former use of tobacco/nicotine Alcohol intake: never Substance/Drug Use: never Physical Exam Const: COMMON NORMALS: no acute distress, average body habitus, patient brendon ented x3, no limitations, healthy appearing, alert and well nourished HENMT: COMMON NORMALS: normocephalic, atraumatic, hearing grossly normal mark aterally, external ears normal, Normal external nose present, moist oral mucous membranes and oropharynx normal HEAD & SCALP: normocephalic and atraumatic NOSE: Normal external nose present EXTERNAL EAR: Yes external ears normal Neck/C-Spine: COMMON NORMALS: no JVD Chest: COMMONS NORMALS: normal inspection of the chest and normal palpation of entire chest wall Resp: COMMON NORMALS: normal respiratory effort, No retractions, No use of accessory muscles and clear to auscultation bilaterally AUSCULTATION: clear to auscultation bilaterally Cardio: COMMON NORMALS: no JVD, regular rate, regular rhythm, S1 normal heart sound present, S2 normal heart sound present, No gallops present (Cardio), No clicks present (Cardio), No murmurs present (Cardio) and No rub (Cardio) RATE: regular rate RHYTHM: regular rhythm HEART SOUNDS: S1 normal heart sound present and S2 normal heart sound present GI: COMMON NORMALS: Normal to inspection, nondistended, normoactive bowel sounds present, Soft to palpation, non-tender, No hepatosplenomegaly present and no masses PALPATION: Yes Soft to palpation and Yes No hepatosplenomegaly present Neuro: COMMON NORMALS: patient oriented x3 SENSORIUM/ORIENTATION: Yes alert Course Vital Signs: Vital signs: Vital Signs Temperature 98.7 F 04/28/23 22:17 Pulse Rate 86 04/28/23 22:17 Respiratory Rate 18 04/28/23 22:17 Blood Pressure 169/77 04/28/23 22:17 Pulse Oximetry 94 04/28/23 22:17 Oxygen Delivery Me thod Room Air 04/28/23 22:17 MDM - Chest Pain Medical Decision Making Patient was evaluated for physical exam labs. Patient can back positive for influenza A. This was discussed with the patient and his . Patient be discharged home. Differential Diagnosis Unlikely acute massive pulmonary embolism, acute respiratory failure, acute myocardial infarction, cardiac arrest or sudden cardiac Medical Records I reviewed the patient's medical records. Lab Data I reviewed the patient's lab results. Radiology Impressions Chest X-Ray 04/28/23 21:57 IMPRESSION: 1. No acute cardiopulmonary abnormality. Laboratory Results Influenza Type A Ag positive (Negative) H 04/29/23 00:26 Influenza Type B Ag negative (Negative) 04/29/23 00:26 SARS-CoV-2 Ag (Rapid) negative (Negative) 04/29/23 00:26 All radiology interpretation(s) finalized by discharge Discharge Plan Discharge Patient Disposition: Home Clinical Impression: Influenza A Condition: Stable Prescriptions: No Action lidocaine HCl 20 mg/mL (2 %) solution 1 ml Infiltration ONCE Qty: 1 0RF metoprolol succinate 50 mg tablet extended release 24 hr 50 mg PO DAILY Qty: 90 3RF loratadine [Claritin] 10 mg tablet 10 mg PO DAILY multivitamin Tablet 1 tab PO DAILY albuterol sulfate 90 mcg/actuation HFA aerosol inhaler See Rx Instructions .ROUTE .COMPLEX Qty: 8.5 11RF Dose Instruction: INHALE 2 PUFFS EVERY 4 HOURS NEEDED Rx Instructions: INHALE 2 PUFFS EVERY 4 HOURS NEEDED simvastatin 20 mg tablet See Rx Instructions .ROUTE .COMPLEX Qty: 90 3RF Dose Instruction: TAKE 1 TABLET BY MOUTH EVERY DAY Rx Instructions: TAKE 1 TABLET BY MOUTH EVERY DAY Xarelto 20 mg tablet 20 mg PO DAILY Qty: 90 3RF furosemide 20 mg tablet 20 mg PO DAILY Qty: 90 3RF potassium chloride 10 mEq tablet extended release See Rx Instructions .ROUTE .COMPLEX Qty: 30 3RF Dose Instruction: TAKE 1 TABLET BY MOUTH DAILY Rx Instructions: TAKE 1 TABLET BY MOUTH DAILY Chewable Calcium 1 tab PO DAILY Discharge Orders: Discharge ED (Routine); Ordered 04/29/23 Ordered By: Tae Ramos Referrals: Phill Mora MD [Primary Care Provider] - 1 week Patient Instructions: Influenza (ED) Activity Restrictions/Additional Instructions: Your test came back positive for influenza A. Please practice symptomatic control. Please drink plenty of fluids. Please follow-up with your family practice physician in the next 7 to 10 days for further evaluation treatment if needed. Coding Level of Care Code ED Data Analytics Developer for Christopher Banks
[2023-04-29 00:52] LABS: SARS Covid-2 Antigen negative (Negative)
[2023-04-29 01:16] VITALS: BP 138/71; PULSE 83; RESP 20; O2SAT 93
[2023-04-29 01:25] VITALS: BP 138/71; PULSE 62; RESP 18; O2SAT 93
== END 2023-04-29 01:26 | disposition home or self-care (01) ==
PROVIDERS: Emergency Medicine; Emergency Provider Emergency Medicine; PCP Family Medicine
DX: J10.1 Influenza due to other identified influenza virus with other respiratory manifestations (principal); Z11.52 Encounter for screening for COVID-19; Z87.891 Personal history of nicotine dependence; Z95.0 Presence of cardiac pacemaker; I10 Essential (primary) hypertension; E78.5 Hyperlipidemia, unspecified
CPT/HCPCS: 71045; 87426; 87804; 99284

== ENCOUNTER → 2023-05-17 13:50 | Outpatient (BNVA) | payer MEDICARE, SELFPAY | PROVIDERS: PCP Family Medicine; Visit Provider Thoracic Surgery (Cardiothoracic Vascular Surgery) | DX: I83.893 Varicose veins of bilateral lower extremities with other complications (principal) | CPT/HCPCS: 99212 ==

== ENCOUNTER → 2023-08-04 15:07 | Outpatient (BNVA) | payer MEDICARE, SELFPAY | PROVIDERS: PCP Family Medicine; Visit Provider Internal Medicine Cardiovascular Disease | DX: Z45.010 Encounter for checking and testing of cardiac pacemaker pulse generator [battery] (principal) | CPT/HCPCS: 93296 ==

== ENCOUNTER → 2023-08-24 11:14 | Outpatient (BNVA) | payer MEDICARE, SELFPAY | PROVIDERS: PCP Family Medicine; Visit Provider Family Medicine | DX: I48.20 Chronic atrial fibrillation, unspecified (principal); Z86.79 Personal history of other diseases of the circulatory system; I65.22 Occlusion and stenosis of left carotid artery | CPT/HCPCS: 80053; 80061; 85025 ==

== ENCOUNTER → 2023-08-30 13:22 | Outpatient (BNVA) | payer MEDICARE, SELFPAY | PROVIDERS: PCP Family Medicine; Visit Provider Thoracic Surgery (Cardiothoracic Vascular Surgery) | DX: I83.893 Varicose veins of bilateral lower extremities with other complications (principal) | CPT/HCPCS: 99212 ==

== ENCOUNTER → 2023-09-06 14:46 | Outpatient (BNVA) | payer MEDICARE, SELFPAY | PROVIDERS: PCP Family Medicine; Visit Provider Internal Medicine Cardiovascular Disease | DX: I48.91 Unspecified atrial fibrillation (principal); E78.5 Hyperlipidemia, unspecified; Z95.0 Presence of cardiac pacemaker; I65.22 Occlusion and stenosis of left carotid artery; I83.93 Asymptomatic varicose veins of bilateral lower extremities; Z79.01 Long term (current) use of anticoagulants; Z87.891 Personal history of nicotine dependence; I10 Essential (primary) hypertension | CPT/HCPCS: 99214 ==

== ENCOUNTER → 2023-11-03 15:54 | Outpatient (BNVA) | payer MEDICARE, SELFPAY | PROVIDERS: PCP Family Medicine; Visit Provider Internal Medicine | DX: Z45.010 Encounter for checking and testing of cardiac pacemaker pulse generator [battery] (principal) | CPT/HCPCS: 93296 ==

== ENCOUNTER → 2024-02-08 08:40 | Outpatient (BNVA) | payer MEDICARE, SELFPAY | PROVIDERS: PCP Family Medicine; Referring Provider Family Medicine; Visit Provider Student in an Organized Health Care Education/Training Program | DX: Z12.11 Encounter for screening for malignant neoplasm of colon (principal) | CPT/HCPCS: 99024; 99204 ==

== ENCOUNTER → 2024-03-06 10:54 | Outpatient (BNVA) | payer MEDICARE, SELFPAY | PROVIDERS: PCP Family Medicine; Visit Provider Nurse Practitioner Family | DX: Z95.0 Presence of cardiac pacemaker (principal); I35.0 Nonrheumatic aortic (valve) stenosis; I48.20 Chronic atrial fibrillation, unspecified; I10 Essential (primary) hypertension; I49.8 Other specified cardiac arrhythmias | CPT/HCPCS: 99214 ==

== ENCOUNTER 2024-04-05 09:44 | Outpatient (CLI) | payer MEDICARE, SELFPAY ==
--- NOTE | 2024-04-05 10:00 | USCV_ITS ---
Severiano Jensen Age: 73 Gender: M : 1950 Exam Date: 04/05/2024 10:02 Ordering Phys: Melissa Mcgraw Technologist: CT Exam Location: [facility] – [place] Indication: BP: 144 / 80 HR: 111 Rhythm: Sinus Technical Quality: Adequate MEASUREMENTS (Male / Female) Normal Values 2D ECHO LVOT Diameter 2.0 cm LV Ejection Fraction MOD 4C 56.2 % LV Ejection Fraction MOD 2C 42.9 % LV Ejection Fraction 2C AL 46.0 % LA Diameter 6.0 cm RA Systolic Volume 4C AL 194.6 ml RA Systolic Volume 4C MOD 193.0 ml LA Sys Volume AL 155.4 cm cubed LA Sys Volume Index AL 61.0 cm cubed/m squared Aorta at Sinotubular Diameter 1.9 cm M-MODE LA Ao Ratio MM 2.3 AV Cusp Separation MM 1.1 cm DOPPLER AV Peak Velocity 210.0 cm/s LVOT Peak Velocity 78.0 cm/s AV Area Cont Eq vti 1.2 cm squared AV Area Cont Eq pk 1.2 cm squared MV Peak Velocity 119.0 cm/s MV Area PHT 3.2 cm squared Mitral E to A Ratio 4.4 TR Peak Velocity 316.5 cm/s TR Peak Gradient 40.1 mmHg TR Mean Velocity 208.0 cm/s TR Mean Gradient 20.7 mmHg TR Velocity Time Integral 95.5 cm TV Peak E Velocity 98.0 cm/s PV Peak Velocity 108.0 cm/s FINDINGS Left Ventricle Normal LV size with a borderline low ejection fraction of around 50%. Mild diffuse hypokinesis of the septum. Right Ventricle Pacemaker wire is noted . Mildly dilated right ventricle with a normal ejection fraction Right Atrium Moderately increased right atrial size. Pacemaker wire is noted Left Atrium Moderately increased left atrial size. Mitral Valve Mild-moderate mitral valve regurgitation. Aortic Valve Thickened with associated mobility. Peak velocity of 2.1 m/s. Patient is of aortic valve sclerosis Tricuspid Valve Moderate tricuspid valve regurgitation. Estimated pulmonary artery peak systolic pressure 43 mmHg Pulmonic Valve Mild pulmonary valve regurgitation. Pericardium Trivial pericardial effusion. Aorta Normal aortic annulus size. IVC Not visualized CONCLUSIONS Normal LV size with a borderline low ejection fraction of around 50%. Mild diffuse hypokinesis of the septum. Moderate biatrial enlargement. Mildly dilated right ventricle with a normal ejection fraction. Pacemaker wire in the right atrium right ventricle Mild-moderate mitral valve regurgitation. Moderate tricuspid valve regurgitation. Estimated pulmonary artery peak systolic pressure 43 mmHg. Features of aortic valve sclerosis with a peak velocity 2.1 m/s. Valve area was calculated to be 1.2 cm squared There is no pericardial effusion. There are no intracardiac masses. Compared to the study from 07/23/2022, the LV ejection fraction has dropped from 68% to 50% Dr Monica Mcnulty MD [facility] (Electronically Signed) Final Date: 05 April 2024 13:27 S
== END 2024-04-05 09:45 | disposition home or self-care (01) ==
LOC: RAD 09:46
PROVIDERS: PCP Family Medicine; Visit Provider Nurse Practitioner Family
DX: I36.1 Nonrheumatic tricuspid (valve) insufficiency (principal); I51.7 Cardiomegaly; I35.8 Other nonrheumatic aortic valve disorders; I31.39 Other pericardial effusion (noninflammatory); Z95.0 Presence of cardiac pacemaker
CPT/HCPCS: 93306; 99214

== ENCOUNTER → 2024-04-10 07:48 | Day surgery (SDC) | payer MEDICARE, SELFPAY ==
[2024-04-10 08:01] VITALS: BP 161/103; PULSE 90; RESP 16; TEMP 36.5; O2SAT 95
[2024-04-10] MEDS: sodium chloride 0.9% 500 ML 15 ML IV (08:10)
--- NOTE | 2024-04-10 08:47 | SUR.PREOP ---
Case cancelled per anesthesia. Pt needs cardiac workup and clearance.
== END ==
LOC: GILAB 07:48
PROVIDERS: PCP Family Medicine; Visit Provider Student in an Organized Health Care Education/Training Program
PROC: 0DJD8ZZ Inspection of Lower Intestinal Tract, Via Natural or Artificial Opening Endoscopic (ICD-10-PCS; CPT 45378; principal; 2024-04-10 09:00)
DX: Z53.8 Procedure and treatment not carried out for other reasons (principal)
CPT/HCPCS: J7040

== ENCOUNTER 2024-04-20 08:07 | Outpatient (CLI) | payer MEDICARE, SELFPAY ==
--- NOTE | 2024-04-20 07:27 | NMCV_ITS ---
NM roberto carlos perf SPECT r/s* [id number] Severiano Jensen Age: 73 Gender: M : 1950 Exam Date: 04/20/2024 07:27 Ordering Phys: Melissa Mcgraw Technologist: MAEGAN Min Exam Location: [facility] Indications: cp STRESS TEST Please see separate stress test report in [facility] for full findings IMAGE PROTOCOL Rest/Stress 1 Lexiscan Day Radiopharmaceutical Dose (mCi) Administration Site Administered by Rest: Tc-99m 10.6 IV Selin Caruso, COMPENSATION AND HRIS ANALYST Sestamibi Stress:Tc-99m 33 IV Selin Josegle, COMPENSATION AND HRIS ANALYST Sestamibi Rest: 20-Apr-2024 60 Discovery 630 Stress: 20-Apr-2024 30 Discovery 630 0.4mg Lexiscan. Supine position only as patient was unable to lay prone. SPECT RESULTS Technical Quality: Good Raw Data Analysis: Normal Image Corrections: No attenuation or motion correction applied Summed Stress Score: 4 Summed Rest Score: 10 Summed Difference Score: 0 PERFUSION FINDINGS Large area of fixed perfusion defect noted in basal to distal inferior wall suggestive of old myocardial infarction versus scarring. FUNCTIONAL RESULTS (calculated via Gated SPECT) Stress Image LV EF (%): 65 Stress EDV (mL):116 TID: 1.18 Stress ESV (mL):41 FUNCTIONAL FINDINGS: Mid to distal inferior wall akinesis IMPRESSIONS Large area for myocardial infarction versus scarring noted in the basal to distal inferior wall without genesis-infarct ischemia. This study is negative for ischemia Solange Mann MD (Electronically Signed) Final Date: 20 April 2024 12:46 S
--- NOTE | 2024-04-20 07:27 | ECG_ITS ---
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 The perfusion scan will be documented separately. DATA: Baseline heart rate was 76 beats per minute. Baseline blood pressure was 144/97 millimeters of mercury. Target heart rate was 146. Maximum heart rate achieved was 87. which was 59% of the predicted target heart rate. Maximum blood pressure was 146/106 millimeters of mercury. The reason for ending the test was completion of the protocol. The patient did not experience any symptoms. ELECTROCARDIOGRAM: BASELINE: Atrial fibrillation, left bundle branch block, left axis EXERCISE: After Lexiscan injection, no ST-T changes suggestive of ischemic noted. No arrhythmia noted. CONCLUSION: Please note due to baseline abnormality of the EKG specificity and sensitivity of the EKG portion of LexiScan MIBI stress test will be low 1. EKG not suggestive of ischemia 2. Lexiscan injection unremarkable. 3. Perfusion scan will be documented separately. Electronically Signed On 05-06-2024 21:09:07 YARD CRANE OPERATOR by ALLEN LANZA [email or web address]
[2024-04-20 08:19] VITALS: BMI 47.4
[2024-04-20] MEDS: regadenoson 0.4 Mg/5 ml Syringe IVP (09:39)
[2024-04-20 09:54] VITALS: BP 112/70; PULSE 60
== END 2024-04-20 08:08 | disposition home or self-care (01) ==
LOC: CDL 08:08
PROVIDERS: PCP Family Medicine; Visit Provider Nurse Practitioner Family
DX: R07.9 Chest pain, unspecified (principal); R93.89 Abnormal findings on diagnostic imaging of other specified body structures
CPT/HCPCS: 36415; 78452; 93017; 96374; A9500; J2785

== ENCOUNTER 2024-05-23 05:50 | Day surgery (SDC) | payer MEDICARE, SELFPAY ==
[2024-05-23 06:04] VITALS: BP 163/94; PULSE 86; RESP 17; TEMP 36.3; O2SAT 96; BMI 46.7
[2024-05-23] MEDS: sodium chloride 0.9% 500 ML 999 ML IV (06:15)
--- NOTE | 2024-05-23 06:44 | ANES.PREANE2 ---
Pre-Anesthetic Assessment Height/Weight: Height 1.68 m Weight 131.542 kg Temp Pulse Resp BP Pulse Ox O2 Del Method 97.3 F L 86 17 163/94 96 Room Air 05/23/24 06:04 05/23/24 06:04 05/23/24 06:04 05/23/24 06:04 05/23/24 06:04 05/23/24 06:04 Preop Diagnosis: positive cologuard Operation Date: 05/23/24 07:00 Proposed Procedures p Colonoscopy 62496, G0121, Z12.11(Not Applicable) - Gerhard Joe MD Familial anesthetic complications: none Was Beta Amy taken within 24 hours: Yes Was Clonidine taken within 24 hours: N/A Last intake: Intake Last Liquid Date 05/22/24 Last Liquid Time 22:00 Last Solid Date 05/21/24 Last Solid Time 20:00 Social No alcohol and No tobacco Exam alert and oriented x 3 Airway Submandibular: within normal limits Cervical ROM: within normal limits Mallampati: Class III Dentition: false Pulmonary Asthma, Exertional Dyspnea and Sleep Apnea CV/HEM Atrial Fibrillation, Arrythmia and Hypertension afib, pacemaker paced 98% of the time per cardiology note. HO carotid endarterectomy by mcgee. MAC None reported Hepatic None reported GI Gastroesophageal Reflux Disease (diet controlled) HO lap band procedure Metabolic Morbid Obesity Musc/skel Osteoarthritis/DJD Neuropsych None reported Anesthetic Plan Anesthesia: Anesthesia Evaluation and MAC Risk of > 500 ml blood loss (7ml/kg in children): No Medications/Allergies Home Medications ?Medication ?Instructions ?Recorded ?Confirmed ?Last Taken ?Type loratadine 10 mg tablet (Claritin) 10 mg PO DAILY 11/22/19 05/23/24 05/22/24 History multivitamin 1 tab PO DAILY 11/22/19 05/23/24 05/22/24 History Chewable Calcium 1 tab PO DAILY 12/09/20 05/23/24 05/22/24 History rivaroxaban 20 mg tablet (Xarelto) 20 mg PO DAILY #90 tabs 01/31/24 05/23/24 05/17/24 Rx furosemide 20 mg tablet 20 mg PO DAILY #90 tabs 03/24/24 05/23/24 05/22/24 Rx metoprolol succinate 50 mg 50 mg PO DAILY #90 tabs 03/24/24 05/23/2405/23/25 Rx tablet,extended release 24 hr albuterol sulfate 90 mcg/actuation 2 puff inhalation Q4-5H PRN 04/06/24 05/23/24 05/22/24 History aerosol inhaler shortness of air potassium chloride 10 mEq 10 meq PO DAILY 04/06/24 05/23/24 05/22/24 History tablet,extended release simvastatin 20 mg tablet 20 mg PO DAILY 04/06/24 05/23/24 05/22/24 History losartan 25 mg tablet 25 mg PO DAILY #90 tabs 05/01/24 05/23/24 05/22/24 Rx Allergies Allergy/AdvReac Type Severity Reaction Status Date / Time lisinopril AdvReac Intermediate increased Verified 05/23/24 05:59 Cr Current Medications Generic Name Dose Route Start Last Admin Trade Name Freq PRN Reason Stop Dose Admin Sodium Chloride 500 mls @ 999 mls/hr 05/23/24 05:54 05/23/24 06:15 Sodium Chloride 0.9% IV 999 mls/hr .Q31M PRN Administration HYPOTENSION PFSH Anesthesia Medical History History of cellulitis Pacemaker Daytime somnolence Hx of carotid artery stenosis History of atrial fibrillation History of hypertension Hx of hyperlipidemia History of second degree heart block Obstructive sleep apnea Surgical History Hx of tonsillectomy Personal history of gastric banding History of carotid endarterectomy Family History Father Hypertension CAD (coronary artery disease) Diabetes Mother Hypertension Cancer Dementia Stroke Denies family history of Clotting disorder Chronic kidney disease (CKD) Suicide Anesthesia complication Bleeding disorder Lung disease Social History Smoking and tobacco/nicotine status: former use of tobacco/nicotine Alcohol intake: never Substance/Drug Use: never Data Anesthesia Cardiac Studies: Echocardiogram 04/05/24 Sestamibi Stress Test (Cardiology) 04/20/24 Cardiac Event Monitor 08/15/20
--- NOTE | 2024-05-23 07:03 | W.PM.OPSFHP ---
Same Day Surgery H&P Indication for Procedure/HPI DATE OF PROCEDURE: May 23, 2024 CHIEF COMPLAINT/INDICATIONFOR SURGICAL PROCEDURE: positive cologuard PREOP DIAGNOSIS: positive cologuard PLANNED PROCEDURE: Operation Date: 05/23/24 07:00 Proposed Procedures p Colonoscopy 77970, G0121, Z12.11(Not Applicable) - Gerhard Joe MD Medications/Allergies* Home Medications ?Medication ?Instructions ?Recorded ?Confirmed ?Type loratadine 10 mg tablet (Claritin) 10 mg PO DAILY 11/22/19 05/23/24 History multivitamin 1 tab PO DAILY 11/22/19 05/23/24 History Chewable Calcium 1 tab PO DAILY 12/09/20 05/23/24 History albuterol sulfate 90 mcg/actuation 2 puff inhalation Q4-5H PRN 04/06/24 05/23/24 History aerosol inhaler shortness of air potassium chloride 10 mEq 10 meq PO DAILY 04/06/24 05/23/24 History tablet,extended release simvastatin 20 mg tablet 20 mg PO DAILY 04/06/24 05/23/24 History Allergies/Adverse Reactions Allergy/AdvReac Type Severity Reaction Status Date / Time lisinopril AdvReac Intermediate increased Verified 05/23/24 05:59 Cr Current Medications: Generic Name Dose Route Start Last Admin Trade Name Freq PRN Reason Stop Dose Admin Sodium Chloride 500 mls @ 999 mls/hr 05/23/24 05:54 05/23/24 06:15 Sodium Chloride 0.9% IV 999 mls/hr .Q31M PRN Administration HYPOTENSION Pertinent History/Comorbid Conditions* Medical History (Updated 03/06/24 @ 14:31 by KEVIN Claudio) History of cellulitis Pacemaker Daytime somnolence Hx of carotid artery stenosis History of atrial fibrillation History of hypertension Hx of hyperlipidemia History of second degree heart block Obstructive sleep apnea Surgical History (Updated 12/20/20 @ 12:48 by KEVIN Claudio) Hx of tonsillectomy Personal history of gastric banding History of carotid endarterectomy Family History (Updated 08/14/20 @ 10:38 by Dixie Delcid RN) Diabetes Father CAD (coronary artery disease) Father Dementia Mother Cancer Mother Hypertension Father Mother Stroke Mother Denies family history of Clotting disorder Chronic kidney disease (CKD) Suicide Anesthesia complication Bleeding disorder Lung disease Social History Smoking and tobacco/nicotine status: former use of tobacco/nicotine Alcohol intake: never Substance/Drug Use: never Pertinent Exam Findings alert, oriented x 3, clear to auscultation bilaterally, regular rate & rhythm and procedure specific exam findings abdomen soft, nt, nd Recommendations Surgery/Procedure today Coding Level of Care Code Acute Code for Chg Jocelyn
[2024-05-23 07:25] VITALS: BP 101/57; PULSE 68; RESP 18; TEMP 36.6; O2SAT 95
--- NOTE | 2024-05-23 07:42 | ANE.PACU2 ---
Inpatient post-anesthesia follow up: Airway intact: Yes Vital signs: Temperature 97.8 F Pulse Rate 68 Respiratory Rate 18 Blood Pressure 101/57 Pulse Oximetry 95 Oxygen Delivery Me thod Room Air Oxygen Flow Rate Fraction of Inspir ed Oxygen Hydration adequate: Yes Nausea and vomiting: No Pain level: 1 Mental status: Baseline
[2024-05-23 07:47] VITALS: BP 103/65; PULSE 65; RESP 18; O2SAT 98
== END 2024-05-23 08:00 | disposition home or self-care (01) ==
PROVIDERS: PCP Family Medicine; Visit Provider Student in an Organized Health Care Education/Training Program
PROC: 0DJD8ZZ Inspection of Lower Intestinal Tract, Via Natural or Artificial Opening Endoscopic (ICD-10-PCS; CPT 45378; principal; 2024-05-23 07:00)
DX: D12.0 Benign neoplasm of cecum (principal); R19.5 Other fecal abnormalities; K57.30 Diverticulosis of large intestine without perforation or abscess without bleeding; Z88.8 Allergy status to other drugs, medicaments and biological substances; Z79.899 Other long term (current) drug therapy; I48.91 Unspecified atrial fibrillation; E78.5 Hyperlipidemia, unspecified; G47.33 Obstructive sleep apnea (adult) (pediatric); Z95.0 Presence of cardiac pacemaker; Z98.84 Bariatric surgery status; Z87.891 Personal history of nicotine dependence; K21.9 Gastro-esophageal reflux disease without esophagitis; E66.01 Morbid (severe) obesity due to excess calories; Z68.42 Body mass index [BMI] 45.0-49.9, adult; I10 Essential (primary) hypertension
CPT/HCPCS: 45385; 88305; J2704; J7040

== ENCOUNTER → 2024-06-05 10:29 | Outpatient (BNVA) | payer MEDICARE, SELFPAY | PROVIDERS: PCP Family Medicine; Visit Provider Student in an Organized Health Care Education/Training Program | DX: Z09 Encounter for follow-up examination after completed treatment for conditions other than malignant neoplasm (principal) | CPT/HCPCS: 99213 ==

== ENCOUNTER 2024-07-31 02:00 | Emergency (ER) | payer MEDICARE, SELFPAY ==
[2024-07-31 02:07] VITALS: BP 144/94; PULSE 76; RESP 16; TEMP 36.2; O2SAT 97; BMI 46.0
--- NOTE | 2024-07-31 02:15 | CTR_ITS ---
PROCEDURE INFORMATION: Exam: CT Head Without Contrast Exam date and time: 07/31/2024 3:02 AM Age: 73 years old Clinical indication: Injury or trauma; Blunt trauma (contusions or hematomas); Injury details: Fall in the middle of the night hitting head on nightstand. PT has lac above RT eye; Additional info: Hit head on eliquis TECHNIQUE: Imaging protocol: Computed tomography of the head without contrast. Radiation optimization: All CT scans at this facility use at least one of these dose optimization techniques: automated exposure control; mA and/or kV adjustment per patient size (includes targeted exams where dose is matched to clinical indication); or iterative reconstruction. COMPARISON: No relevant prior studies available. RADIATION DOSE METRICS: Total DLP (mGy-cm): 1086.87 FINDINGS: Brain: There is generalized brain atrophy. Gutiérrez-white differentiation is preserved. Amorphous lucency is present in the supratentorial white matter bilaterally. No evidence of intracranial hemorrhage or mass effect. Cerebral ventricles: No ventriculomegaly. Paranasal sinuses: Visualized sinuses are unremarkable. No fluid levels. Mastoid air cells: Visualized mastoid air cells are well aerated. Bones: Unremarkable. No acute fracture. Soft tissues: Right supraorbital scalp laceration. CT/CT head wo con* 13712 IMPRESSION: 1. Cerebral atrophy and chronic cerebral microvascular disease. 2. No evidence of acute intracranial process.
--- NOTE | 2024-07-31 03:44 | W.ED.WOUNDLC ---
HPI - Wound/Laceration General: Chief Complaint: Wound/Laceration Stated Complaint: Fall Rt Eye Injury Time Seen by Provider: 07/31/24 03:23 History of Present Illness: Patient fell out of bed tonight, striking his head on the nightstand. He is anticoagulated on rivaroxaban. He sustained a laceration to his right eyebrow. He is still bleeding. Otherwise, no other injury. No headache. No vomiting. No vision change. Related Data Home Medications ?Medication ?Instructions ?Recorded ?Confirmed loratadine 10 mg tablet (Claritin) 10 mg PO DAILY 11/22/19 06/05/24 multivitamin 1 tab PO DAILY 11/22/19 06/05/24 Chewable Calcium 1 tab PO DAILY 12/09/20 06/05/24 albuterol sulfate 90 mcg/actuation 2 puff inhalation Q4-5H PRN 04/06/24 06/05/24 aerosol inhaler shortness of air potassium chloride 10 mEq 10 meq PO DAILY 04/06/24 06/05/24 tablet,extended release simvastatin 20 mg tablet 20 mg PO DAILY 04/06/24 06/05/24 Previous Rx's ?Medication ?Instructions ?Recorded rivaroxaban 20 mg tablet (Xarelto) 20 mg PO DAILY #90 tabs 01/31/24 Held on 05/23/24. Instructions: Resume on 05/24/24. furosemide 20 mg tablet 20 mg PO DAILY #90 tabs 03/24/24 metoprolol succinate 50 mg 50 mg PO DAILY #90 tabs 03/24/24 tablet,extended release 24 hr losartan 25 mg tablet 25 mg PO DAILY #90 tabs 05/01/24 Allergies Allergy/AdvReac Type Severity Reaction Status Date / Time lisinopril AdvReac Intermediate increased Verified 07/31/24 02:09 Cr PFSH ED PFSH: Medical History History of cellulitis Pacemaker Daytime somnolence Hx of carotid artery stenosis History of atrial fibrillation History of hypertension Hx of hyperlipidemia History of second degree heart block Obstructive sleep apnea Surgical History Hx of tonsillectomy Personal history of gastric banding History of carotid endarterectomy Family History Father Hypertension CAD (coronary artery disease) Diabetes Mother Hypertension Cancer Dementia Stroke Denies family history of Clotting disorder Chronic kidney disease (CKD) Suicide Anesthesia complication Bleeding disorder Lung disease Social History Smoking and tobacco/nicotine status: former use of tobacco/nicotine Alcohol intake: never Substance/Drug Use: never Physical Exam Const: COMMON NORMALS: no acute distress GENERAL APPEARANCE: cooperative and comfortable; not ill appearing and not frail appearing ORIENTATION/CONSCIOUSNESS: Yes awake, Yes oriented to person, Yes oriented to place and Yes oriented to time HENMT: COMMON NORMALS: normocephalic HEAD & SCALP: normocephalic FACE & SINUS: ecchymosis (Right periorbital), erythema (Right periorbital) and laceration (1.5 inch linear eyebrow laceration right) Eye: COMMON NORMALS: Equal, round and reactive pupils present and EOMs intact bilaterally GENERAL EYE: appearance normal, both eyes and all related structures PUPIL: Yes Equal, round and reactive pupils present Chest: CHEST: Yes Symmetrical chest wall rise Resp: COMMON NORMALS: normal respiratory effort and No retractions Neuro: SENSORIUM/ORIENTATION: Yes oriented to person, Yes oriented to place and Yes oriented to time Procedures Laceration Laceration 1: Site: face Side (If applicable): right Size (cm): 4 Description: linear Depth: simple, single layer Local Anesthetic: lidocaine 1% and with epi Amount of anesthesia used (mL): 5 Pre-repair: wound explored, irrigated extensively and deep structures intact Skin layer closed with: other (prolene) Size (cm): 4-0 Number of sutures: 4 Technique: simple, interrupted Course Vital Signs: Vital signs: Vital Signs Temperature 97.1 F L 07/31/24 02:07 Pulse Rate 76 07/31/24 02:07 Respiratory Rate 16 07/31/24 02:07 Blood Pressure 144/94 07/31/24 02:07 Pulse Oximetry 97 07/31/24 02:07 Oxygen Delivery Me thod Room Air 07/31/24 02:07 MDM - Wound/Laceration Medical Decision Making Head CT negative for intracranial hemorrhage or swelling. Laceration is repaired with Prolene without complication. Bleeding is controlled. No evidence of orbital trauma. He will be discharged. Lab Data Radiology Impressions Head CT 07/31/24 02:15 IMPRESSION: 1. Cerebral atrophy and chronic cerebral microvascular disease. 2. No evidence of acute intracranial process. All radiology interpretation(s) finalized by discharge Discharge Plan Discharge Patient Disposition: Home Clinical Impression: Laceration of eyebrow, right, Contusion of face Condition: Stable Prescriptions: No Action loratadine [Claritin] 10 mg tablet 10 mg PO DAILY multivitamin Tablet 1 tab PO DAILY Xarelto 20 mg tablet 20 mg PO DAILY Qty: 90 3RF metoprolol succinate 50 mg tablet extended release 24 hr 50 mg PO DAILY Qty: 90 3RF furosemide 20 mg tablet 20 mg PO DAILY Qty: 90 3RF losartan 25 mg tablet 25 mg PO DAILY Qty: 90 3RF Chewable Calcium 1 tab PO DAILY potassium chloride 10 mEq tablet extended release 10 meq PO DAILY simvastatin 20 mg tablet 20 mg PO DAILY albuterol sulfate 90 mcg/actuation HFA aerosol inhaler 2 puff inhalation Q4-5H PRN (Reason: shortness of air) Discharge Orders: Discharge ED (Routine); Ordered 07/31/24 Ordered By: Ramon Rosales Referrals: Phill Mora MD [Primary Care Provider, [facility]] - 4-7 days Patient Instructions: Facial Contusion (ED), Facial Laceration (ED), Opioid Safety, Pain Management Activity Restrictions/Additional Instructions: You may clean with soap and running water. Do not soak. Sutures out in 7 days. Call your doctor later this morning for a follow-up appointment. Return for any problems. Print Language: Ukrainian Coding Level of Care Code ED Teacher Emotionally Impaired for Christopher Banks
[2024-07-31] MEDS: tetanus-dipt-pertussis 0.5 mL SDV IM (04:19)
[2024-07-31] MEDS: lidocaine-epi 1% 20 mL INJ INJECTION (04:20)
== END 2024-07-31 04:38 | disposition home or self-care (01) ==
PROVIDERS: Emergency Provider Emergency Medicine; PCP Family Medicine
DX: S01.111A Laceration without foreign body of right eyelid and periocular area, initial encounter (principal); W06.XXXA Fall from bed, initial encounter; Z87.891 Personal history of nicotine dependence; Z95.0 Presence of cardiac pacemaker; E78.5 Hyperlipidemia, unspecified; I10 Essential (primary) hypertension; Z23 Encounter for immunization
CPT/HCPCS: 12013; 70450; 90471; 90715; 99284; J9999

== ENCOUNTER → 2024-09-07 11:28 | Outpatient (BNVA) | payer MEDICARE, SELFPAY | PROVIDERS: PCP Family Medicine; Visit Provider Internal Medicine Cardiovascular Disease | DX: I48.20 Chronic atrial fibrillation, unspecified (principal); I65.23 Occlusion and stenosis of bilateral carotid arteries; Z95.0 Presence of cardiac pacemaker; I65.22 Occlusion and stenosis of left carotid artery; I83.93 Asymptomatic varicose veins of bilateral lower extremities; E78.5 Hyperlipidemia, unspecified; I10 Essential (primary) hypertension | CPT/HCPCS: 99214 ==

== ENCOUNTER → 2024-09-13 09:43 | Outpatient (BNVA) | payer MEDICARE, SELFPAY | PROVIDERS: PCP Family Medicine; Visit Provider Internal Medicine Cardiovascular Disease | DX: Z45.018 Encounter for adjustment and management of other part of cardiac pacemaker (principal) | CPT/HCPCS: 80053; 80061; 84153; 85025; 93296 ==

== ENCOUNTER 2024-09-14 15:14 | Outpatient (CLI) | payer MEDICARE, SELFPAY ==
--- NOTE | 2024-09-14 15:30 | USCV_ITS ---
Jennyaaron Severiano Age: 73 Gender: M : 1950 Exam Date: 09/14/2024 15:23 Ordering Phys: Monica Mcnulty MD ([email or web address] [place]) Technologist: JOANNA Exam Location[place] [facility] [place] Indication: Stenosis. Endart 10+ years ago Risk Factors: Previous Vascular Surgery: Right Brachial BP: / Left Brachial BP: / Right Left Velocity (cm/s) Spectral Plaque Velocity (cm/s) Spectral Plaque Syst/Diast Broadening Syst/Diast Broadening 68.70/ 16.80 Prox CCA 120.90/ 28.20 60.90/ 19.40 Mid CCA 121.10/ 24.10 70.00/ 22.00 Distal CCA 110.20/ 18.50 84.30/ 20.70 Prox ICA 99.80 / 19.80 103.20/32.50 Mid ICA 127.20/ 33.20 162.20/43.10 Distal ICA 89.80 / 35.70 57.00 ECA 172.10 1.20 ICA/CCA 0.90 Antegrade Vertebral Antegrade 119.8/ 25.50 cm/s 78.30/ 19.50 cm/s 0 Tri Subclavian Tri 139.1 223.3 0 0 CONCLUSIONS Right ICA stenosis <50%. Moderate atheromatous plaque right carotid bulb/ICA. Left ICA stenosis <50%. Moderate atheromatous plaque left carotid bulb/ICA. Normal antegrade Doppler flow noted in the right vertebral artery. Normal antegrade Doppler flow noted in the left vertebral artery. Jose Carlos Kyle MD (Electronically Signed) Final Date: 14 September 2024 16:46 S
== END 2024-09-14 15:15 | disposition home or self-care (01) ==
LOC: RAD 15:16
PROVIDERS: PCP Family Medicine; Visit Provider Internal Medicine Cardiovascular Disease
DX: I65.23 Occlusion and stenosis of bilateral carotid arteries (principal)
CPT/HCPCS: 93880

== ENCOUNTER → 2025-03-09 09:37 | Outpatient (BNVA) | payer MEDICARE, SELFPAY | PROVIDERS: PCP Family Medicine; Visit Provider Nurse Practitioner Family | DX: I48.20 Chronic atrial fibrillation, unspecified (principal); I10 Essential (primary) hypertension; I87.2 Venous insufficiency (chronic) (peripheral); Z95.0 Presence of cardiac pacemaker; Z79.01 Long term (current) use of anticoagulants; I65.23 Occlusion and stenosis of bilateral carotid arteries | CPT/HCPCS: 99214 ==